=== PATIENT | female | born 1945 | race African-American/Black ===

== ENCOUNTER 2020-03-06 22:19 | Inpatient (IN) | payer MEDICARE ==
[2020-03-07] MEDS ORDERED: traMADol HCl 50 MG TAB PO PRN (08:50)
[2020-03-07] MEDS ORDERED: Sacubitril 49 MG/Valsartan 51 MG TABLET PO SCH (09:00)
[2020-03-07] MEDS ORDERED: EAC OP SCH (09:00)
[2020-03-07] MEDS ORDERED: Non-Formulary Item 1 EACH (Benzonatate [Benzonatate] 200 MG Capsule) PO SCH (09:00)
[2020-03-07] MEDS ORDERED: PEG OP SCH (09:00)
[2020-03-07] MEDS ORDERED: Non-Formulary Item 1 EACH (Linagliptin [Tradjenta] 5 MG Tablet) PO SCH (09:00)
[2020-03-07] MEDS ORDERED: PROPYLENE GLYCOL OP SCH (09:00)
[2020-03-07] MEDS ORDERED: Calcium Acetate 667 MG CAP PO SCH (09:00)
[2020-03-07] MEDS ORDERED: Ergocalciferol 1.25 MG(50,000 UNITS) CAP PO SCH (09:00)
[2020-03-07] MEDS ORDERED: [UNRECOGNIZED DRUG - OTHER] OP SCH (09:00)
[2020-03-07] MEDS: Benzonatate 100 MG CAP PO SCH ×3 (12:28→21:48)
[2020-03-07] MEDS: rOPINIRole HCl 1 MG TAB PO SCH ×2 (12:29→21:48)
[2020-03-07] MEDS: Sacubitril 49 MG/Valsartan 51 MG TABLET PO SCH ×2 (12:29→21:48)
[2020-03-07] MEDS: Aspirin Chewable 81 MG TAB PO SCH (12:31)
[2020-03-07] MEDS: Ferrous Sulfate 325 MG TAB PO SCH (12:31)
[2020-03-07] MEDS: Fish Oil 1,000 MG CAP PO SCH (12:31)
[2020-03-07] MEDS: Gabapentin 300 MG CAP PO SCH (12:32)
[2020-03-07] MEDS: Ketoconazole 2% Cream 15 gm Tube TOP SCH (12:33)
[2020-03-07] MEDS: Atorvastatin Calcium 10 MG TAB PO SCH (12:34)
[2020-03-07] MEDS: Alogliptin 25 MG TAB PO SCH (12:34)
[2020-03-07] MEDS: Ergocalciferol 1.25 MG(50,000 UNITS) CAP PO SCH (12:35)
[2020-03-07] MEDS: Calcium Acetate 667 MG CAP PO SCH ×2 (14:39→21:48)
[2020-03-07] MEDS: Carvedilol 6.25 MG TAB PO SCH (17:29)
[2020-03-07] MEDS: Polyethylene Glycol OPTH DROP 15 ML BOT EA EYE SCH (21:49)
[2020-03-08 05:54] LABS: ALT (SGPT) 11 U/L (8-55); AST (SGOT) 16 U/L (5-34); Albumin 3.3 g/dL (3.4-4.8); Alkaline Phosphatase 44 U/L (40-110); Anion Gap 18 mmol/L (10-20); BUN (Urea Nitrogen) 35 mg/dL (9.8-20.1); Bilirubin, Total 0.6 mg/dL (0.2-1.2); Calc. Creatinine Clearance 9 mL/min (70-130); Carbon Dioxide 28 mmol/L (23-31); Chloride 96 mmol/L (98-107); Globulin 3.6 g/dL (2.4-3.5); Glucose 103 mg/dL (83-110); Potassium 4.2 mmol/L (3.5-5.1); Protein, Total 6.9 g/dL (6.0-8.3); Sodium 138 mmol/L (136-145)
[2020-03-08 05:57] LABS: #Eosinphils 0.1 thou/uL (0.0-0.7); #Lymphocytes 0.8 thou/uL (1.20-3.40); #Monocytes 0.4 thou/uL (0.11-0.59); #Neutrophils 1.5 thou/uL (1.40-6.50); %Basophils 1.1 % (0.0-1.0); %Eosinophils 2.2 % (0.0-10.0); %Lymphocytes 27.5 % (21.0-51.0); %Monocytes 12.7 % (0.0-10.0); %Neutrophils 56.6 % (42.0-75.0); Anisocytosis MODERATE=16-30 cells (100X) (0-5/hpf); Band 6 % (5-11); Burr Cells SLIGHT = 2-5 cells (100X) (0-1/hpf); Elliptocytes SLIGHT = 2-5 cells (100X) (0-1/hpf); Hemoglobin 11.1 g/dL (12.0-16.0); Lymphocytes 18 % (21-51); MDiff Complete? YES; Mean Corpuscular HGB CONC 30.7 g/dL (32.0-36.0); Mean Corpuscular Hemoglobin 25.8 pg (27.0-31.0); Mean Corpuscular Volume 84.2 fL (78.0-98.0); Mean Platelet Volume 11.3 fL (7.4-10.4); Monocytes 16 % (0-10); Neutrophil 60 % (42-75); Ovalocytes MODERATE= 6-15 cells (100X) (0-1/hpf); Platelet Count 131 thou/uL (130-400); Platelet Morphology Comment Appears Adequate; Poikilocytosis MODERATE=16-30 cells (100X) (0-5/hpf); Polychromasia SLIGHT = 2-3 cells (100X) (0-2/hpf); RBC Distribution Width 16.1 % (11.5-14.5); Red Blood Cell (RBC) Count 4.31 mill/uL (4.20-5.40); Target Cells SLIGHT = 2-5 cells (100X) (0-1/hpf); Tear Drops SLIGHT = 2-5 cells (100X) (0-1/hpf); White Blood Cell (WBC) Count 2.7 thou/uL (4.8-10.8)
--- NOTE | 2020-03-08 08:16 | PRG ---
DATE OF SERVICE: 03/07/2020 SUBJECTIVE: The patient is lying in bed, feeling well, watching TV. No complaints, shortness of breath, or chest pain and is eating well. She has undergone dialysis and is having no nausea and vomiting. OBJECTIVE: VITAL SIGNS: Temperature is 98.3, pulse 79, respirations 20, O2 sats 98% on room air, blood pressure 119/53. LUNGS: Clear. CARDIAC: Regular rhythm. SKIN/EXTREMITIES: Bilateral fyhzj-bxh-nilw amputation. ASSESSMENT: 1. Stable end-stage renal disease, on hemodialysis 3 times weekly. 2. Stable systolic heart failure, controlled on Entresto. No evidence of exacerbation. 3. Recent diagnosis of COVID-19 on March 04, in isolation until March 14 with inability to obtain transportation to dialysis other than from the hospital, and continue dialysis 3 times weekly with transportation from the hospital. 4. Continue to monitor for exacerbation of congestive heart failure. 5. Continue to monitor for worsening of COVID-19 infection. 6. Continue to monitor vital signs closely. 7. Continue stress ulcer prophylaxis. Job ID: [id number]
--- NOTE | 2020-03-08 08:26 | HP ---
HISTORY OF PRESENT ILLNESS: The patient is an unfortunate 74-year-old female with a long history of end-stage renal disease, on hemodialysis; who has been found to be COVID positive on March 04. She had symptoms of cough and chest pain and was admitted to the hospital where she was evaluated and found to have no evidence of COVID pneumonia or significant hypoxia. She does have a premorbid condition of heart failure systolic with AICD placed. She has been doing well on her medications of Entresto with no difficulty breathing, only the coughing. Chest pain just appeared to resolve and she was felt to be stable to be discharged home but was requiring dialysis 3 times weekly routinely and her family refuses to take her until she is out of isolation, which would be on March 15, ten days from her diagnosis on March 04. She is unable to transport herself because of bilateral qdxwi-zjw-utno amputations secondary to severe peripheral vascular disease. PAST MEDICAL HISTORY: Otherwise remarkable only for hyperlipidemia, hypertension, in addition to the diabetes, systolic heart failure, peripheral vascular disease with bilateral amputations. PAST SURGICAL HISTORY: Positive for thrombolysis and thrombosis of the right arm after a hemodialysis access. AV fistula and the above-mentioned bilateral amputations as well as AICD placement. REVIEW OF SYSTEMS: CONSTITUTIONAL: She denies any headaches, dizziness, change in vision or hearing, hoarseness, or dysphagia. She denies any fever, chills. PULMONARY: She does have the above-mentioned cough, which is improved greatly and has no further shortness of breath or sputum production. CARDIOVASCULAR: She denies chest pain, orthopnea, paroxysmal nocturnal dyspnea, or edema. She did have chest pain on admission, but it has resolved. GASTROINTESTINAL: She denies nausea, vomiting, diarrhea, constipation, or abdominal pain. GENITOURINARY: She denies dysuria, hematuria, nocturia. MUSCULOSKELETAL: She has the above-mentioned well-healed bilateral above knee amputations. NEUROLOGIC: She has a history of bilateral peripheral neuropathy of her hands. PHYSICAL EXAMINATION: GENERAL: The patient is an elderly obese black female, lying in bed, in no acute distress. Oriented x3 and cooperative. VITAL SIGNS: Showed to have temperature 97.8, pulse 83, respirations 18, O2 sats 96% on room air, blood pressure is 115/58. HEENT: Pupils are equal, round, and reactive to light and accommodation. Sclerae anicteric. Conjunctivae pale. Oral mucous membranes well hydrated. NECK: Supple. No nodes or masses. JVP is not elevated. LUNGS: Clear. CARDIAC: Shows regular rhythm. S4. No other gallops or murmurs. Defibrillator is in place. ABDOMEN: Soft and nontender but obese. No masses or organomegaly. SKIN/EXTREMITIES: Showed well-healed bilateral iznrm-vfi-xceo amputation. LABORATORY DATA: Most recent laboratories do have a white count of 2900, hemoglobin of 10.9, hematocrit of 35.6. Sodium 137, potassium 4.0, chloride 96, bicarb 27, BUN 36, creatinine 7.14. BNP 611. Troponin 0.096. ASSESSMENT: A 74-year-old female with history of hypertension, hyperlipidemia, end-stage renal disease on hemodialysis, and type 2 diabetes as well as morbid obesity, peripheral vascular disease status post bilateral amputations; has developed coronavirus disease 2019 infection with no significant debility other than a transient chest pain and improving cough with no hypoxemia or an oxygen requirement. She, however, has been unable to arrange transportation as an outpatient during hemodialysis until she is out of isolation and therefore will be kept in [facility] until she is out of isolation on March 14. She will be continued on her previous medicines and monitor for exacerbation of congestive heart failure. To be continue Accu-Cheks to monitor and titrate and control diabetes. She will be continued on stress ulcer prophylaxis. Job ID: [id number]
[2020-03-08] MEDS: Calcium Acetate 667 MG CAP PO SCH ×3 (08:39→22:44)
[2020-03-08] MEDS: Fish Oil 1,000 MG CAP PO SCH (08:40)
[2020-03-08] MEDS: Carvedilol 6.25 MG TAB PO SCH ×2 (08:40→13:53)
[2020-03-08] MEDS: Sacubitril 49 MG/Valsartan 51 MG TABLET PO SCH ×2 (08:41→22:45)
[2020-03-08] MEDS: Ferrous Sulfate 325 MG TAB PO SCH (08:41)
[2020-03-08] MEDS: Gabapentin 300 MG CAP PO SCH (08:41)
[2020-03-08] MEDS: rOPINIRole HCl 1 MG TAB PO SCH ×2 (08:41→22:45)
[2020-03-08] MEDS: Benzonatate 100 MG CAP PO SCH ×3 (08:42→22:45)
[2020-03-08] MEDS: Atorvastatin Calcium 10 MG TAB PO SCH (08:42)
[2020-03-08] MEDS: Aspirin Chewable 81 MG TAB PO SCH (08:43)
[2020-03-08] MEDS: Polyethylene Glycol OPTH DROP 15 ML BOT EA EYE SCH ×2 (08:44→22:44)
[2020-03-08] MEDS: Alogliptin 25 MG TAB PO SCH (08:44)
[2020-03-08] MEDS: Ketoconazole 2% Cream 15 gm Tube TOP SCH (08:46)
[2020-03-09 01:41] VITALS: BMI 67.9
[2020-03-09] MEDS: Ketoconazole 2% Cream 15 gm Tube TOP SCH (08:29)
[2020-03-09] MEDS: Polyethylene Glycol OPTH DROP 15 ML BOT EA EYE SCH ×2 (08:30→20:56)
[2020-03-09] MEDS: Calcium Acetate 667 MG CAP PO SCH ×3 (08:30→20:56)
[2020-03-09] MEDS: Fish Oil 1,000 MG CAP PO SCH (08:30)
[2020-03-09] MEDS: Sacubitril 49 MG/Valsartan 51 MG TABLET PO SCH ×2 (08:30→20:56)
[2020-03-09] MEDS: Aspirin Chewable 81 MG TAB PO SCH (08:31)
[2020-03-09] MEDS: Benzonatate 100 MG CAP PO SCH ×3 (08:31→20:56)
[2020-03-09] MEDS: Ferrous Sulfate 325 MG TAB PO SCH (08:31)
[2020-03-09] MEDS: Atorvastatin Calcium 10 MG TAB PO SCH (08:32)
[2020-03-09] MEDS: Alogliptin 25 MG TAB PO SCH (08:32)
[2020-03-09] MEDS: Gabapentin 300 MG CAP PO SCH (08:33)
[2020-03-09] MEDS: Carvedilol 6.25 MG TAB PO SCH ×2 (08:33→16:40)
[2020-03-09] MEDS: rOPINIRole HCl 1 MG TAB PO SCH ×2 (08:34→20:56)
--- NOTE | 2020-03-10 07:05 | PRG ---
DATE OF SERVICE: 03/08/2020 SUBJECTIVE: The patient lying in bed with no complaints. Asking how long she is going to need to be in isolation before she can start riding the bus to her dialysis. I explained to her that initial diagnosis was made on but it was documented on the , and therefore, she will be in isolation until March 15. She is unable to transport herself to dialysis bus and therefore will need to stay until then. She has bilateral AKA and is unable to do more than transfer with her arms, which she will work with therapy for this. She also has significant systolic heart failure with AICD, but is having no shortness of breath or coughing on her medication of Entresto. Her blood pressure has remained stable with no dizziness or syncope. OBJECTIVE: VITAL SIGNS: Showed to have temperature of 98.9, pulse 81, respirations 18, O2 saturations 99% on room air, and blood pressure 142/72. LUNGS: Clear. CARDIAC: Showed regular rhythm. ABDOMEN: Soft and nontender. SKIN/EXTREMITIES: Show bilateral AKA. ASSESSMENT AND PLAN: 1. COVID-19 infection. No evidence of hypoxia or change in vital signs, but in isolation until March 15. 2. Deconditioning secondary to COVID, requiring PT to be able to transfer. 3. End-stage renal disease, on hemodialysis three times weekly, to be transferred by ambulance until she is out of isolation on March 15. Job ID: [id number]
--- NOTE | 2020-03-10 08:17 | PRG ---
DATE OF SERVICE: 03/09/2020 SUBJECTIVE: The patient is lying in bed, watching TV, with no complaints, shortness of breath, chest pain, nausea, vomiting, fever, or chills. OBJECTIVE: VITAL SIGNS: Temperature 97.9, pulse 85, respirations 20, O2 saturations 95% on room air, blood pressure 114/58. LUNGS: Clear. CARDIAC: Showed regular rhythm. ABDOMEN: Soft and nontender. ASSESSMENT: 1. Stable end-stage renal disease, on hemodialysis 3 times weekly. 2. Recent COVID-19 infection, in isolation until March 15. 3. Deconditioning secondary to COVID, requiring PT to be able to transfer from the hospital bed to wheelchair. 1. End-stage renal disease, on hemodialysis 3 times weekly, to be transferred by ambulance until she is out of isolation on March 15. 2. Deconditioning, requiring PT to be able to transfer. 3. COVID-19 infection, resolving but in isolation until March 15. PLAN: 1. Continue PT. 2. Continue hemodialysis. 3. Continue isolation. Job ID: [id number]
[2020-03-10] MEDS: Polyethylene Glycol OPTH DROP 15 ML BOT EA EYE SCH ×2 (09:21→21:12)
[2020-03-10] MEDS: Ketoconazole 2% Cream 15 gm Tube TOP SCH (09:22)
[2020-03-10] MEDS: Fish Oil 1,000 MG CAP PO SCH (09:22)
[2020-03-10] MEDS: Carvedilol 6.25 MG TAB PO SCH ×2 (09:23→17:14)
[2020-03-10] MEDS: Alogliptin 25 MG TAB PO SCH (09:23)
[2020-03-10] MEDS: Calcium Acetate 667 MG CAP PO SCH ×3 (09:23→21:12)
[2020-03-10] MEDS: Aspirin Chewable 81 MG TAB PO SCH (09:24)
[2020-03-10] MEDS: rOPINIRole HCl 1 MG TAB PO SCH ×2 (09:24→21:12)
[2020-03-10] MEDS: Atorvastatin Calcium 10 MG TAB PO SCH (09:25)
[2020-03-10] MEDS: Benzonatate 100 MG CAP PO SCH ×3 (09:25→21:12)
[2020-03-10] MEDS: Gabapentin 300 MG CAP PO SCH (09:26)
[2020-03-10] MEDS: Sacubitril 49 MG/Valsartan 51 MG TABLET PO SCH ×2 (09:27→21:12)
[2020-03-10] MEDS: Ferrous Sulfate 325 MG TAB PO SCH (09:27)
[2020-03-11] MEDS: Ketoconazole 2% Cream 15 gm Tube TOP SCH (09:35)
[2020-03-11] MEDS: Polyethylene Glycol OPTH DROP 15 ML BOT EA EYE SCH ×2 (09:35→21:39)
[2020-03-11] MEDS: Benzonatate 100 MG CAP PO SCH ×3 (09:36→21:39)
[2020-03-11] MEDS: Fish Oil 1,000 MG CAP PO SCH (09:36)
[2020-03-11] MEDS: Carvedilol 6.25 MG TAB PO SCH ×2 (09:36→17:49)
[2020-03-11] MEDS: Aspirin Chewable 81 MG TAB PO SCH (09:37)
[2020-03-11] MEDS: Gabapentin 300 MG CAP PO SCH (09:37)
[2020-03-11] MEDS: Atorvastatin Calcium 10 MG TAB PO SCH (09:38)
[2020-03-11] MEDS: Ferrous Sulfate 325 MG TAB PO SCH (09:45)
[2020-03-11] MEDS: Alogliptin 25 MG TAB PO SCH (09:45)
[2020-03-11] MEDS: rOPINIRole HCl 1 MG TAB PO SCH ×2 (09:46→21:39)
[2020-03-11] MEDS: Sacubitril 49 MG/Valsartan 51 MG TABLET PO SCH ×2 (09:47→21:39)
[2020-03-11] MEDS: Calcium Acetate 667 MG CAP PO SCH ×3 (10:23→17:49)
[2020-03-11] MEDS ORDERED: traMADol HCl 50 MG TAB PO PRN (10:45)
--- NOTE | 2020-03-11 19:44 | PRG ---
DATE OF SERVICE: 03/10/2020 SUBJECTIVE: The patient is returning from dialysis. No complaints. Doing well. Awaiting resolution of isolation, so she can be discharged home. OBJECTIVE: VITAL SIGNS: Temperature 96.7, pulse 85, respirations 20, O2 sats 97% on room air, blood pressure 112/63. LUNGS: Clear. CARDIAC: Regular rhythm. ABDOMEN: Soft and nontender. SKIN/EXTREMITIES: Bilateral pdlzr-eor-wvdw amputation. ASSESSMENT: 1. Resolving COVID-19 infection, in isolation until March 15. 2. Improved deconditioning, almost back to baseline, but requiring PT to be able to be transferred. 3. End-stage renal disease, on hemodialysis 3 ambulance until she is out of isolation on March 15. Job ID: [id number]
[2020-03-12] MEDS: Polyethylene Glycol 3350 17 GM Packet PO SCH (08:34)
[2020-03-12] MEDS: Calcium Acetate 667 MG CAP PO SCH ×3 (08:34→16:39)
[2020-03-12] MEDS: Fish Oil 1,000 MG CAP PO SCH (08:35)
[2020-03-12] MEDS: Carvedilol 6.25 MG TAB PO SCH ×2 (08:35→16:37)
[2020-03-12] MEDS: Aspirin Chewable 81 MG TAB PO SCH (08:36)
[2020-03-12] MEDS: Alogliptin 25 MG TAB PO SCH (08:36)
[2020-03-12] MEDS: Ferrous Sulfate 325 MG TAB PO SCH (08:37)
[2020-03-12] MEDS: Gabapentin 300 MG CAP PO SCH (08:37)
[2020-03-12] MEDS: Benzonatate 100 MG CAP PO SCH ×3 (08:37→20:35)
[2020-03-12] MEDS: rOPINIRole HCl 1 MG TAB PO SCH ×2 (08:37→20:35)
[2020-03-12] MEDS: Sacubitril 49 MG/Valsartan 51 MG TABLET PO SCH ×2 (08:37→20:35)
[2020-03-12] MEDS: Atorvastatin Calcium 20 MG TAB PO SCH (08:37)
[2020-03-12] MEDS: Ketoconazole 2% Cream 15 gm Tube TOP SCH (08:38)
[2020-03-12] MEDS: Polyethylene Glycol OPTH DROP 15 ML BOT EA EYE SCH ×2 (08:38→20:36)
--- NOTE | 2020-03-12 20:00 | PRG ---
DATE OF SERVICE: 03/11/2020 SUBJECTIVE: Ms. Sosa is resting in bed and denies any concerns. She denies any chest pain or shortness of breath. Discussed with nursing. OBJECTIVE: VITAL SIGNS: She is afebrile. Heart rate 85, respirations 20, oxygen saturation 96% on room air, blood pressure 136/68. CARDIOVASCULAR SYSTEM: S1, S2 plus. RESPIRATORY SYSTEM: Normal vesicular breath sounds. ABDOMEN: Soft, nontender. Bowel sounds heard in all quadrants. EXTREMITIES: Without any cyanosis, clubbing. Bilateral AKA. CENTRAL NERVOUS SYSTEM: Generalized weakness, otherwise, nonfocal. IMPRESSION: 1. Resolving COVID-19 infection, isolation ends March 15. 2. Deconditioning, much improved. 3. End-stage renal disease, on hemodialysis. 4. Dyslipidemia. 5. Diabetes mellitus type 2. 6. Peripheral neuropathy. PLAN: 1. Continue current medications. 2. Nutritional support with 1800-calorie heart healthy renal diet. 3. Accu-Cheks with sliding scale coverage. 4. Continue respiratory droplet precautions. 5. Physical therapy. 6. Routine laboratory values. 7. Hemodialysis. Job ID: [id number]
[2020-03-13] MEDS: Polyethylene Glycol OPTH DROP 15 ML BOT EA EYE SCH ×2 (08:41→23:17)
[2020-03-13] MEDS: Ketoconazole 2% Cream 15 gm Tube TOP SCH (08:42)
[2020-03-13] MEDS: Polyethylene Glycol 3350 17 GM Packet PO SCH (08:43)
[2020-03-13] MEDS: Fish Oil 1,000 MG CAP PO SCH (08:43)
[2020-03-13] MEDS: Gabapentin 300 MG CAP PO SCH (08:43)
[2020-03-13] MEDS: Atorvastatin Calcium 20 MG TAB PO SCH (08:44)
[2020-03-13] MEDS: Benzonatate 100 MG CAP PO SCH ×3 (08:44→23:17)
[2020-03-13] MEDS: Ferrous Sulfate 325 MG TAB PO SCH (08:45)
[2020-03-13] MEDS: rOPINIRole HCl 1 MG TAB PO SCH ×2 (08:45→23:17)
[2020-03-13] MEDS: Aspirin Chewable 81 MG TAB PO SCH (08:45)
[2020-03-13] MEDS: Alogliptin 25 MG TAB PO SCH (08:45)
[2020-03-13] MEDS: Carvedilol 6.25 MG TAB PO SCH ×2 (08:46→17:52)
[2020-03-13] MEDS: Sacubitril 49 MG/Valsartan 51 MG TABLET PO SCH ×2 (08:48→23:17)
[2020-03-13] MEDS: Calcium Acetate 667 MG CAP PO SCH ×3 (08:49→17:51)
[2020-03-13 16:44] LABS: SARS-CoV-2 MS2 Positive; SARS-CoV-2 N Gene Positive; SARS-CoV-2 S Gene Positive; SARS-CoV-2 by NAA DETECTED (NotDetected); SARS-CoV-2 orf1ab Positive
[2020-03-14] MEDS: Alogliptin 25 MG TAB PO SCH (08:48)
[2020-03-14] MEDS: Carvedilol 6.25 MG TAB PO SCH (08:48)
[2020-03-14] MEDS: Atorvastatin Calcium 20 MG TAB PO SCH (08:48)
[2020-03-14] MEDS: Aspirin Chewable 81 MG TAB PO SCH (08:49)
[2020-03-14] MEDS: Polyethylene Glycol 3350 17 GM Packet PO SCH (08:50)
[2020-03-14] MEDS: Gabapentin 300 MG CAP PO SCH (08:51)
[2020-03-14] MEDS: rOPINIRole HCl 1 MG TAB PO SCH (08:52)
[2020-03-14] MEDS: Benzonatate 100 MG CAP PO SCH ×2 (08:52→14:24)
[2020-03-14] MEDS: Fish Oil 1,000 MG CAP PO SCH (08:52)
[2020-03-14] MEDS: Ferrous Sulfate 325 MG TAB PO SCH (08:53)
--- NOTE | 2020-03-14 08:55 | PRG ---
DATE OF SERVICE: 03/13/2020 SUBJECTIVE: The patient feels well, going to dialysis. Had some improvement in her constipation. Still having some pasty movement. She is asking about her COVID-19 test, which has not returned. She is feeling better and wants to go home. OBJECTIVE: VITAL SIGNS: Shows her temperature is 97.2, pulse 81, respirations 18, O2 sats 98% on room air, blood pressure 135/62. LUNGS: Clear. CARDIAC: Shows regular rhythm. ABDOMEN: Soft and nontender. EXTREMITIES: Showed no edema. Bilateral AKA. NEUROLOGICAL: Shows generalized weakness improving. ASSESSMENT: 1. Resolving COVID-19, but now appears apparently dialysis will not take her until she is three weeks post diagnosis. No symptoms and we will confirm this. They also will take her if she has had two negative COVID, so COVID test has been done is pending. 2. Deconditioning, improved. 3. End-stage renal disease, on hemodialysis stable. 4. Diabetes type 2, stable. PLAN: 1. Continue dialysis three times weekly. 2. Continue isolation. 3. Continue nutritional support. 4. Continue to monitor constipation with laxatives. 5. Discuss dialysis requirements for resolution of COVID isolation with . Job ID: [id number]
[2020-03-14] MEDS: Sacubitril 49 MG/Valsartan 51 MG TABLET PO SCH (09:03)
[2020-03-14] MEDS: Calcium Acetate 667 MG CAP PO SCH ×2 (09:03→12:24)
[2020-03-14] MEDS: Polyethylene Glycol OPTH DROP 15 ML BOT EA EYE SCH (09:04)
[2020-03-14] MEDS: Ketoconazole 2% Cream 15 gm Tube TOP SCH (09:04)
[2020-03-14] MEDS: Ergocalciferol 1.25 MG(50,000 UNITS) CAP PO SCH (09:20)
--- NOTE | 2020-03-14 10:53 | PRG ---
DATE OF SERVICE: 03/14/2020 SUBJECTIVE: The patient feels well after complaining of some abdominal pain and constipation. COVID is still positive and therefore, patient is not being accepted for transfer and family will not take her, so she will continue to require dialysis here. OBJECTIVE: VITAL SIGNS: Shows temperature 98, pulse 80, respirations 20, O2 sats 98% on room air, blood pressure is 129/68. Laboratory has not been done recently. ABDOMEN: Soft with some tenderness. ASSESSMENT: 1. COVID positive with deconditioning, minimal change. 2. End-stage renal disease, in need of dialysis and will not accept for at least 21 days or two negative COVID. 3. Abdominal pain and constipation. We will get CBC, comprehensive metabolic panel, and abdominal x-ray. Job ID: [id number]
--- NOTE | 2020-03-14 11:43 | RAD ---
KUB: 03/14/2020 COMPARISON: None HISTORY: Abdominal pain and constipation FINDINGS: There is an incompletely visualized transvenous pacing lead overlying the inferior aspect o f the cardiac silhouette. Extensive atherosclerotic calcification of the abdominal aorta and its branches noted. The bowel gas pattern appears nonobstructed. Supine imaging limits assessment for levi e intraperitoneal air and small bowel obstruction. IMPRESSION: Extensive atherosclerotic calcification. Nonobstructed bowel gas pattern.
[2020-03-14 12:49] LABS: #Lymphocytes 1.3 thou/uL (1.20-3.40); #Monocytes 0.6 thou/uL (0.11-0.59); #Neutrophils 2.3 thou/uL (1.40-6.50); %Lymphocytes 30.1 % (21.0-51.0); %Monocytes 13.3 % (0.0-10.0); %Neutrophils 54.6 % (42.0-75.0); Hemoglobin 10.9 g/dL (12.0-16.0); Mean Corpuscular HGB CONC 30.4 g/dL (32.0-36.0); Mean Corpuscular Hemoglobin 25.6 pg (27.0-31.0); Mean Corpuscular Volume 84.2 fL (78.0-98.0); Mean Platelet Volume 10.2 fL (7.4-10.4); Platelet Count 149 thou/uL (130-400); Red Blood Cell (RBC) Count 4.24 mill/uL (4.20-5.40); White Blood Cell (WBC) Count 4.3 thou/uL (4.8-10.8)
[2020-03-14 13:04] LABS: ALT (SGPT) 12 U/L (8-55); AST (SGOT) 18 U/L (5-34); Albumin 3.4 g/dL (3.4-4.8); Alkaline Phosphatase 61 U/L (40-110); Anion Gap 14 mmol/L (10-20); BUN (Urea Nitrogen) 29 mg/dL (9.8-20.1); Bilirubin, Total 0.5 mg/dL (0.2-1.2); Calc. Creatinine Clearance 12 mL/min (70-130); Calcium 9.3 mg/dL (7.8-10.44); Chloride 90 mmol/L (98-107); Globulin 3.3 g/dL (2.4-3.5); Glucose 111 mg/dL (83-110); Potassium 4.6 mmol/L (3.5-5.1); Protein, Total 6.7 g/dL (6.0-8.3); Sodium 135 mmol/L (136-145)
[2020-03-14 13:18] LABS: Carbon Dioxide 36 mmol/L (23-31)
[2020-03-15] MEDS: Benzonatate 100 MG CAP PO SCH ×4 (06:50→21:56)
[2020-03-15] MEDS: Polyethylene Glycol OPTH DROP 15 ML BOT EA EYE SCH ×3 (06:51→21:55)
[2020-03-15] MEDS: rOPINIRole HCl 1 MG TAB PO SCH ×3 (06:52→21:56)
[2020-03-15] MEDS: Sacubitril 49 MG/Valsartan 51 MG TABLET PO SCH ×3 (06:52→21:56)
[2020-03-15] MEDS: Polyethylene Glycol 3350 17 GM Packet PO SCH (08:55)
[2020-03-15] MEDS: Fish Oil 1,000 MG CAP PO SCH (08:56)
[2020-03-15] MEDS: Gabapentin 300 MG CAP PO SCH (08:57)
[2020-03-15] MEDS: Carvedilol 6.25 MG TAB PO SCH ×3 (08:58→16:09)
[2020-03-15] MEDS: Calcium Acetate 667 MG CAP PO SCH ×4 (08:58→15:26)
[2020-03-15] MEDS: Atorvastatin Calcium 20 MG TAB PO SCH (09:00)
[2020-03-15] MEDS: Ferrous Sulfate 325 MG TAB PO SCH (09:00)
[2020-03-15] MEDS: Alogliptin 25 MG TAB PO SCH (09:01)
[2020-03-15] MEDS: Aspirin Chewable 81 MG TAB PO SCH (09:01)
[2020-03-15] MEDS: Ketoconazole 2% Cream 15 gm Tube TOP SCH (09:03)
[2020-03-16] MEDS: Polyethylene Glycol OPTH DROP 15 ML BOT EA EYE SCH ×2 (08:49→21:08)
[2020-03-16] MEDS: Ketoconazole 2% Cream 15 gm Tube TOP SCH (08:49)
[2020-03-16] MEDS: Calcium Acetate 667 MG CAP PO SCH ×3 (08:49→16:45)
[2020-03-16] MEDS: Polyethylene Glycol 3350 17 GM Packet PO SCH (08:50)
[2020-03-16] MEDS: Fish Oil 1,000 MG CAP PO SCH (08:50)
[2020-03-16] MEDS: rOPINIRole HCl 1 MG TAB PO SCH ×2 (08:51→21:07)
[2020-03-16] MEDS: Benzonatate 100 MG CAP PO SCH ×3 (08:51→21:07)
[2020-03-16] MEDS: Alogliptin 25 MG TAB PO SCH (08:51)
[2020-03-16] MEDS: Ferrous Sulfate 325 MG TAB PO SCH (08:52)
[2020-03-16] MEDS: Sacubitril 49 MG/Valsartan 51 MG TABLET PO SCH ×2 (08:52→21:07)
[2020-03-16] MEDS: Carvedilol 6.25 MG TAB PO SCH ×2 (08:53→16:45)
[2020-03-16] MEDS: Atorvastatin Calcium 20 MG TAB PO SCH (08:53)
[2020-03-16] MEDS: Gabapentin 300 MG CAP PO SCH (08:54)
[2020-03-16] MEDS: Aspirin Chewable 81 MG TAB PO SCH (08:55)
[2020-03-16] MEDS: Docusate 100 MG CAP PO SCH (21:07)
[2020-03-17] MEDS: Ketoconazole 2% Cream 15 gm Tube TOP SCH (08:12)
[2020-03-17] MEDS: Polyethylene Glycol OPTH DROP 15 ML BOT EA EYE SCH ×2 (08:12→20:49)
[2020-03-17] MEDS: Fish Oil 1,000 MG CAP PO SCH (08:14)
[2020-03-17] MEDS: Calcium Acetate 667 MG CAP PO SCH ×3 (08:14→17:37)
[2020-03-17] MEDS: Aspirin Chewable 81 MG TAB PO SCH (08:15)
[2020-03-17] MEDS: Sacubitril 49 MG/Valsartan 51 MG TABLET PO SCH ×2 (08:15→20:49)
[2020-03-17] MEDS: Benzonatate 100 MG CAP PO SCH ×3 (08:15→20:49)
[2020-03-17] MEDS: Docusate 100 MG CAP PO SCH ×2 (08:15→20:49)
[2020-03-17] MEDS: Alogliptin 25 MG TAB PO SCH (08:16)
[2020-03-17] MEDS: Carvedilol 6.25 MG TAB PO SCH ×2 (08:16→17:37)
[2020-03-17] MEDS: Ferrous Sulfate 325 MG TAB PO SCH (08:16)
[2020-03-17] MEDS: rOPINIRole HCl 1 MG TAB PO SCH ×2 (08:16→20:49)
[2020-03-17] MEDS: Gabapentin 300 MG CAP PO SCH (08:17)
[2020-03-17] MEDS: Polyethylene Glycol 3350 17 GM Packet PO SCH (08:18)
[2020-03-17] MEDS: Atorvastatin Calcium 20 MG TAB PO SCH (08:18)
[2020-03-17] MEDS ORDERED: Bisacodyl 10 MG SUPP PR SCH (15:00)
[2020-03-18 02:44] LABS: SARS-CoV-2 N Gene Positive; SARS-CoV-2 S Gene Positive; SARS-CoV-2 by NAA DETECTED (NotDetected); SARS-CoV-2 orf1ab Positive
[2020-03-18 02:45] LABS: SARS-CoV-2 MS2 Positive
[2020-03-18] MEDS: Polyethylene Glycol OPTH DROP 15 ML BOT EA EYE SCH ×2 (08:53→22:51)
[2020-03-18] MEDS: Polyethylene Glycol 3350 17 GM Packet PO SCH (08:53)
[2020-03-18] MEDS: Ketoconazole 2% Cream 15 gm Tube TOP SCH (08:53)
[2020-03-18] MEDS: Fish Oil 1,000 MG CAP PO SCH (08:53)
[2020-03-18] MEDS: Gabapentin 300 MG CAP PO SCH (08:54)
[2020-03-18] MEDS: Sacubitril 49 MG/Valsartan 51 MG TABLET PO SCH ×2 (08:54→22:52)
[2020-03-18] MEDS: rOPINIRole HCl 1 MG TAB PO SCH ×2 (08:54→22:52)
[2020-03-18] MEDS: Docusate 100 MG CAP PO SCH ×2 (08:54→22:51)
[2020-03-18] MEDS: Ferrous Sulfate 325 MG TAB PO SCH (08:55)
[2020-03-18] MEDS: Aspirin Chewable 81 MG TAB PO SCH (08:55)
[2020-03-18] MEDS: Alogliptin 25 MG TAB PO SCH (08:56)
[2020-03-18] MEDS: Benzonatate 100 MG CAP PO SCH ×3 (08:56→22:52)
[2020-03-18] MEDS: Atorvastatin Calcium 20 MG TAB PO SCH (08:56)
[2020-03-18] MEDS: Carvedilol 6.25 MG TAB PO SCH ×2 (08:56→17:45)
[2020-03-18] MEDS: Calcium Acetate 667 MG CAP PO SCH ×3 (08:57→17:44)
--- NOTE | 2020-03-18 21:07 | PRG ---
DATE OF SERVICE: 03/17/2020 SUBJECTIVE: The patient has been approved for discharge on March 21. We will continue dialysis here till then. OBJECTIVE: LUNGS: Clear. CARDIAC EXAMINATION: Showed regular rhythm. ABDOMEN: Soft and nontender. EXTREMITIES: Show bilateral above-knee amputation. ASSESSMENT: 1. Resolving COVID-19 infection. 2. Resolving deconditioning. 3. End-stage renal disease. PLAN: Continue hemodialysis, Tuesday and and start again on Tuesday, Tuesday, Tuesday. Job ID: [id number]
--- NOTE | 2020-03-18 21:23 | PRG ---
DATE OF SERVICE: 03/16/2020 SUBJECTIVE: The patient feels well, resting in bed watching TV. No complaints except upset she is not able to be discharged home this week. OBJECTIVE: VITAL SIGNS: Shows temperature 98.2, pulse 80, respirations 18, O2 saturations 92% on room air, blood pressure 123/63. LUNGS: Clear. CARDIAC: Showed regular rhythm. ABDOMEN: Soft, nontender. SKIN/EXTREMITIES: Show bilateral [id number]-[id number]-oerc amputation. ASSESSMENT: 1. Resolving coronavirus infection. 2. Severe deconditioning. 3. Stable end-stage renal disease, on hemodialysis. PLAN: 1. Continue dialysis three times weekly. 2. Continue to monitor bowel movements. Job ID: [id number]
--- NOTE | 2020-03-18 21:40 | PRG ---
DATE OF SERVICE: 03/18/2020 SUBJECTIVE: The patient feels well. She is going to dialysis. She is happy that she will be discharged later this week. OBJECTIVE: VITAL SIGNS: Shows temperature 98.3 pulse 76, respirations 18, O2 saturation 95% on room air, blood pressure /85. LUNGS: Clear. CARDIAC: Show regular rhythm. ABDOMEN: Soft, nontender. SKIN/EXTREMITIES: Show bilateral AKA. ASSESSMENT: 1. Resolving coronavirus infection. 2. Stable end-stage renal disease, on hemodialysis. 3. Improved deconditioning. PLAN: 1. Continue hemodialysis. 2. discharge March 21. Job ID: [id number]
--- NOTE | 2020-03-19 06:45 | PRG ---
DATE OF SERVICE: 03/15/2020 SUBJECTIVE: The patient feels well, no problems with constipation, getting stronger, but has been told by dialysis that she will not be able to be accepted there transportation for at least 21 days or 2 negative COVIDs. OBJECTIVE: VITAL SIGNS: Show temperature 97.9, pulse 88, respirations 16, O2 sats 97% on room air, and blood pressure 147/90. LUNGS: Clear. CARDIAC: Showed regular rhythm. ABDOMEN: Soft, nontender. EXTREMITIES: Legs show bilateral above knee amputations. ASSESSMENT: 1. Resolving COVID, persistent positive test. 2. End-stage renal disease, on hemodialysis. 3. Peripheral vascular disease, status post bilateral amputations. PLAN: 1. Continue dialysis 3 times weekly. 2. Repeat COVID test in 2 days to see if changed negative. Job ID: [id number]
[2020-03-19] MEDS: Polyethylene Glycol OPTH DROP 15 ML BOT EA EYE SCH ×2 (09:03→21:08)
[2020-03-19] MEDS: Ketoconazole 2% Cream 15 gm Tube TOP SCH (09:03)
[2020-03-19] MEDS: Calcium Acetate 667 MG CAP PO SCH ×3 (09:04→17:08)
[2020-03-19] MEDS: Fish Oil 1,000 MG CAP PO SCH (09:04)
[2020-03-19] MEDS: Benzonatate 100 MG CAP PO SCH ×3 (09:04→21:05)
[2020-03-19] MEDS: Polyethylene Glycol 3350 17 GM Packet PO SCH (09:04)
[2020-03-19] MEDS: Docusate 100 MG CAP PO SCH ×2 (09:05→21:05)
[2020-03-19] MEDS: Sacubitril 49 MG/Valsartan 51 MG TABLET PO SCH ×2 (09:05→21:05)
[2020-03-19] MEDS: rOPINIRole HCl 1 MG TAB PO SCH ×2 (09:05→21:05)
[2020-03-19] MEDS: Atorvastatin Calcium 20 MG TAB PO SCH (09:05)
[2020-03-19] MEDS: Alogliptin 6.25 MG TAB PO SCH (09:05)
[2020-03-19] MEDS: Gabapentin 300 MG CAP PO SCH (09:06)
[2020-03-19] MEDS: Aspirin Chewable 81 MG TAB PO SCH (09:06)
[2020-03-19] MEDS: Carvedilol 6.25 MG TAB PO SCH ×2 (09:07→17:08)
[2020-03-19] MEDS: Ferrous Sulfate 325 MG TAB PO SCH (09:07)
--- NOTE | 2020-03-20 06:01 | PRG ---
DATE OF SERVICE: 03/20/2020 SUBJECTIVE: The patient lying in the bed. No complaints of cough, abdominal pain, shortness of breath. Tolerating dialysis in preparation for discharge on Tuesday. OBJECTIVE: VITAL SIGNS: Shows temperature is 96, pulse 91, respirations 20, O2 sats 100% on room air, blood pressure 129/71. LUNGS: Clear. CARDIAC: Showed regular rhythm. ABDOMEN: Soft, nontender. Accu-Cheks ranged from 98 to 133. ASSESSMENT: 1. Resolving COVID infection with isolation to be finished on March 21, need to be discharged at that time. 2. End-stage renal disease, on hemodialysis. Continue routine hemodialysis Tuesday, Tuesday, Tuesday after discharge with transportation to be done by [email or web address]. 3. Peripheral vascular disease status post bilateral amputations, stable. Job ID: [id number]
[2020-03-20] MEDS: Fish Oil 1,000 MG CAP PO SCH (08:47)
[2020-03-20] MEDS: Docusate 100 MG CAP PO SCH ×2 (08:48→22:43)
[2020-03-20] MEDS: Gabapentin 300 MG CAP PO SCH (08:48)
[2020-03-20] MEDS: Alogliptin 6.25 MG TAB PO SCH (08:48)
[2020-03-20] MEDS: Benzonatate 100 MG CAP PO SCH ×3 (08:48→22:41)
[2020-03-20] MEDS: Sacubitril 49 MG/Valsartan 51 MG TABLET PO SCH ×2 (08:48→22:41)
[2020-03-20] MEDS: Calcium Acetate 667 MG CAP PO SCH ×3 (08:48→17:31)
[2020-03-20] MEDS: Atorvastatin Calcium 20 MG TAB PO SCH (08:49)
[2020-03-20] MEDS: Carvedilol 6.25 MG TAB PO SCH ×2 (08:49→17:31)
[2020-03-20] MEDS: Ferrous Sulfate 325 MG TAB PO SCH (08:49)
[2020-03-20] MEDS: Aspirin Chewable 81 MG TAB PO SCH (08:49)
[2020-03-20] MEDS: Ketoconazole 2% Cream 15 gm Tube TOP SCH (08:50)
[2020-03-20] MEDS: Polyethylene Glycol OPTH DROP 15 ML BOT EA EYE SCH ×2 (08:50→22:43)
[2020-03-20] MEDS: rOPINIRole HCl 1 MG TAB PO SCH ×2 (08:51→22:41)
[2020-03-20] MEDS: Polyethylene Glycol 3350 17 GM Packet PO SCH (08:51)
[2020-03-20 23:00] VITALS: BP 131/66; TEMP 97.9
== END 2020-03-21 04:43 | disposition home or self-care (01) | DRG 177 ==
LOC: NAV ACUTE 22:19 → UNDOADMIN 22:19
PROVIDERS: ADMIT Internal Medicine; ATTEND Internal Medicine
PROC: 8E0ZXY6 Isolation (ICD-10-PCS; principal; 2020-03-06)
DX: U07.1 COVID-19 (principal); N18.6 End stage renal disease; I50.22 Chronic systolic (congestive) heart failure; Z68.45 Body mass index [BMI] 70 or greater, adult; E78.5 Hyperlipidemia, unspecified; E11.42 Type 2 diabetes mellitus with diabetic polyneuropathy; E66.01 Morbid (severe) obesity due to excess calories; R53.81 Other malaise; K59.00 Constipation, unspecified; Z99.2 Dependence on renal dialysis; Z95.810 Presence of automatic (implantable) cardiac defibrillator; Z89.512 Acquired absence of left leg below knee; Z89.511 Acquired absence of right leg below knee; Z88.1 Allergy status to other antibiotic agents
CPT/HCPCS: 36415; 36416; 74018; 80053; 85025; 87635; U0003